=== PATIENT | female | born 1960 | race Caucasian/White ===

== ENCOUNTER 2017-02-05 18:41 | Emergency (ER) | payer SELFPAY ==
[2017-02-05 19:10] VITALS: BP 110/64; PULSE 74; TEMP 98.7; BMI 28.3
[2017-02-05] MEDS ORDERED: IBUPROFEN 400 MG TABLET (FP) PO ONE ×2 (19:22→19:28)
--- NOTE | 2017-02-05 19:28 | PDOC ---
History of Present Illness - General Chief Complaint: Ear Problem Stated Complaint: PAIN, ACUTE Time Seen by Provider: 02/05/17 19:11 History Source: Patient - History of Present Illness Timing/Duration: reports: other Severity: reports: moderate Associated Symptoms: reports: earache, sore throat. denies: cough, dizziness, facial pain, fever/chills, lightheadedness, nasal congestion, nasal drainage Past History - Past Medical History Allergies/Adverse Reactions: Allergies Allergy/AdvReac Type Severity Reaction Status Date / Time No Known Allergies Allergy Verified 02/05/17 19:10 Home Medications: Ambulatory Orders Ibuprofen [Motrin -] 600 mg PO QID #28 tablet 02/05/17 - Immunization History Immunization Up to Date: Yes - Psycho/Social/Smoking Cessation Hx Anxiety: No Suicidal Ideation: No Smoking History: Never smoked Have you smoked in the past 12 months: No Information on smoking cessation initiated: No Hx Alcohol Use: No Drug/Substance Use Hx: No Substance Use Type: None Review of Systems - Review of Systems Constitutional: No: Chills, Fever HEENTM: Yes: Ear Pain, Throat Pain Respiratory: No: Cough Neurological: No: Headache, Dizziness *Physical Exam - Vital Signs Last Vital Signs Temp Pulse Resp BP Pulse Ox 98.7 F 74 18 110/64 98 02/05/17 19:01 02/05/17 19:01 02/05/17 19:01 02/05/17 19:01 02/05/17 19:01 - Physical Exam General Appearance: Yes: Appropriately Dressed. No: Apparent Distress HEENT: positive: Normal ENT Inspection, Normal Voice. negative: Scleral Icterus (L), Pharyngeal Erythema Neck: positive: Supple. negative: Lymphadenopathy (R), Lymphadenopathy (L) Respiratory/Chest: negative: Respiratory Distress Integumentary: positive: Dry, Warm Neurologic: positive: Fully Oriented, Alert, Normal Mood/Affect Medical Decision Making - Medical Decision Making 02/05/17 19:23 57 yo F, no sig hx, here w/ L ear pain x 10 days. Also c/o sore throat. No otorrhea, congestion, cough, f/c, BERRY or dizziness. No sick contacts. No recent swimming See exam M/l viral URI Stable w/ unremarkable exam -Motrin in ED -dc w/ PMD and ENT f/u for persistent ear pain w/ no findings on exam 02/05/17 19:28 *DC/Admit/Observation/Transfer Diagnosis at time of Disposition: Ear pain, left - Discharge Dispostion Disposition: HOME Condition at time of disposition: Good - Prescriptions Prescriptions: Ibuprofen [Motrin -] 600 mg PO QID #28 tablet - Referrals Referrals: Kerri Ellington MD [Primary Care Provider] - Curtis Zayas MD [Staff Physician] - - Patient Instructions Printed Discharge Instructions: DI for Ear Pain-Adult Additional Instructions: La causa de ko dolor de odo no est audrey ya que ko examen fue normal. Por favor, tome motrin para el dolor shakila sea necesario y el seguimiento con el Dr Zayas de ENT y ko PMD Print Language: SYRIAN
== END 2017-02-05 19:39 | disposition home or self-care (01) ==
LOC: JERFT 18:41
DX: H92.02 Otalgia, left ear (principal)
CPT/HCPCS: 99281-25

== ENCOUNTER 2019-03-08 19:23 | Emergency (ER) | payer SELFPAY ==
--- NOTE | 2019-03-08 19:44 | PDOC ---
Rapid Medical Evaluation Medical Evaluation: Allergies Allergy/AdvReac Type Severity Reaction Status Date / Time No Known Allergies Allergy Verified 02/05/17 19:10 I have performed a brief in-person evaluation of this patient. The patient presents with a chief complaint of: dizziness x 3 weeks, worse yesterday; denies vomiting, headache, sob, cp, abd pain, urinary complaints Pertinent physical exam findings: In nad, abdomen soft, NT, no CVA tenderness I have ordered the following: Labs, EKG The patient will proceed to the ED for further evaluation. 03/08/19 19:41 Discharge Disposition - Referrals Referrals: Kerri Ellington MD [Primary Care Provider] - - Patient Instructions - Post Discharge Activity
[2019-03-08 19:45] VITALS: TEMP 98.1; BMI 26.2
[2019-03-08 20:22] LABS: EPI CELLS 0.4 /HPF (0-5/HPF); HYALINE CASTS 1 /lpf (0-8); URINE APPEARANCE CLEAR; URINE BACTERIA 5.2 /hpf (NEGATIVE); URINE BILIRUBIN NEGATIVE (NEGATIVE); URINE COLOR YELLOW; URINE GLUCOSE (UA) NEGATIVE (NEGATIVE); URINE KETONE NEGATIVE (NEGATIVE); URINE LEUK ESTERASE NEGATIVE (NEGATIVE); URINE NITRITE NEGATIVE (NEGATIVE); URINE PROTEIN NEGATIVE (NEGATIVE); URINE RBC 7 /hpf (0-4); URINE UROBILINOGEN 0.2 mg/dL (0.2-1.0); URINE WBC 2 /hpf (0-5)
[2019-03-08 21:56] LABS: BASO % 0.3 % (0-2.0); EOS % 2.8 % (0-4.5); HEMATOCRIT 39.2 % (32.4-45.2); LYMPH % 42.5 % (8-40); MCH 31.7 pg (25.7-33.7); MCHC 33.3 g/dl (32.0-36.0); MEAN CELL VOLUME 95.5 fl (80-96); MEAN PLT VOLUME 7.9 fl (7.5-11.1); MONO % 6.1 % (3.8-10.2); NEUT % 48.3 % (42.8-82.8); PLATELET COUNT 247 K/MM3 (134-434); RDW 13.2 % (11.6-15.6); WHITE BLOOD COUNT 7.3 K/mm3 (4.0-10.0)
[2019-03-08 22:25] LABS: ALBUMIN 4.1 g/dl (3.4-5.0); BILIRUBIN,TOTAL 0.2 mg/dL (0.2-1); CALCIUM 9.8 mg/dL (8.5-10.1); CREATININE 0.5 mg/dL (0.55-1.3); POTASSIUM 4.1 mmol/L (3.5-5.1); TOT PROT 7.7 g/dl (6.4-8.2)
--- NOTE | 2019-03-08 22:41 | PDOC ---
History of Present Illness - General Chief Complaint: Lightheaded Stated Complaint: Lightheaded Time Seen by Provider: 03/08/19 19:40 - History of Present Illness Initial Comments: Ysesy Martines is a 59yo woman with no known medical history who presents to the ED with worsening lightheadedness. She additionally reports right posterior headache for several weeks and right side pain for the past 2-3 months. She states that she has been feeling lightheaded wtih dimming vision whenever she stands up from bed for several weeks, but she felt that the symptom worsened yesterday. She has had the right posterior headache over the same period of time. She states that the headache resolves with acetaminophen but returns after several hours. She denies any associated fevers, neck stiffness, changes in vision or hearing, numbness/tingling or focal weakness. Ms Martines states that she wants to know why her head hurts. She additionally reports right mid back/flank pain for the past few months. This pain resolves when applying Vicks. She states that she called her PMD yesterday to set up an a appointment and was told to go to the ED due to the lightheadedness. She hoped the symptoms would resolve, but when they persisted today she came in. Past History - Past Medical History Allergies/Adverse Reactions: Allergies Allergy/AdvReac Type Severity Reaction Status Date / Time No Known Allergies Allergy Verified 03/08/19 19:45 Home Medications: Ambulatory Orders Ibuprofen [Motrin -] 600 mg PO QID #28 tablet 02/05/17 COPD: No Other medical history: DENIES - Immunization History Immunization Up to Date: Yes - Suicide/Smoking/Psychosocial Hx Smoking History: Never smoked Have you smoked in the past 12 months: No Information on smoking cessation initiated: No Hx Alcohol Use: No Drug/Substance Use Hx: No Substance Use Type: None Review of Systems - Review of Systems Comments:: General: + occasional fevers, no chills, no weight or appetite change, + occasional malaise HEENT: No changes in vision, no changes in hearing, no congestion, no sore throat, +headache CV: No chest pain, no palpitations, no LE edema Pulm: No SOB, no cough, no wheezing GI: No nausea or vomiting, no change in bowel habits, no melena : No frequency, no urgency, no dysuria Musc: See HPI. No joint swelling, no recent injury Skin: No rash, no lesions, no erythema Endo: No excessive thirst, no heat/cold intolerance Heme: No unusual bruising or bleeding, no swollen glands Neuro: No syncope, no numbness/tingling, no focal weakness Vasc: No claudication Psych: No recent change in mood, no SI or HI *Physical Exam - Vital Signs Last Vital Signs Temp Pulse Resp BP Pulse Ox 98.1 F 77 18 134/71 99 03/08/19 19:40 03/08/19 19:40 03/08/19 19:40 03/08/19 19:40 03/08/19 19:40 - Physical Exam Comments: General: Comfortable, no acute distress HEENT: PERRL, EOMI, MMM, voice normal, normal neck ROM. Right posterior head TTP Cards: RRR, no murmur appreciated Pulm: Comfortable on room air, clear to auscultation bilaterally Abd: Soft, nontender, nondistended Ext: Atraumatic. No LE edema. ROM intact. Vasc: Extremities WWP. Skin: Normal color, no rashes or lesions Neuro: A&Ox3, CN grossly intact, normal speech, motor/sensory grossly intact and symmetric Psych: Mood appropriate to situation ED Treatment Course - LABORATORY CBC & Chemistry Diagram: 03/08/19 21:47 03/08/19 21:47 - ADDITIONAL ORDERS Additional order review: Laboratory Results 03/08/19 03/08/19 03/08/19 21:47 21:47 19:56 Sodium 141 Potassium 4.1 Chloride 107 Carbon Dioxide 29 Anion Gap 5 L BUN 16.0 Creatinine 0.5 L Est GFR (CKD-EPI)AfAm 121.92 Est GFR (CKD-EPI)NonAf 105.20 Random Glucose 92 Calcium 9.8 Total Bilirubin 0.2 AST 34 ALT 46 Alkaline Phosphatase 143 H Troponin I < 0.02 Total Protein 7.7 Albumin 4.1 Urine Color Yellow Urine Appearance Clear Urine pH 6.0 Ur Specific Peak 1.013 Urine Protein Negative Urine Glucose (UA) Negative Urine Ketones Negative Urine Blood 1+ H Urine Nitrite Negative Urine Bilirubin Negative Urine Urobilinogen 0.2 Ur Leukocyte Esterase Negative Urine WBC (Auto) 2 Urine RBC (Auto) 7 Urine Casts (Auto) 1 U Epithel Cells (Auto) 0.4 Urine Bacteria (Auto) 5.2 03/08/19 21:47 RBC 4.10 MCV 95.5 MCHC 33.3 RDW 13.2 MPV 7.9 Neutrophils % 48.3 Lymphocytes % 42.5 H Monocytes % 6.1 Eosinophils % 2.8 Basophils % 0.3 Medical Decision Making - Medical Decision Making 03/08/19 22:41 Yessy Martines is a 59yo woman with no known medical history who presents to the ED with two weeks of occasional lightheadedness, intermittent headache that resolves with acetaminophen and 2 months of occasional right back/ side pain that resolves with Vicks rub. - Benign exam - CBC, CMP, trop, EKG, UA ordered from [facility]. Labs without concerning abnormalities - EKG w/ sinus bradycardia, HR 55, normal intervals, normal to left axis, no ST changes - Will repeat trop given vague symptoms, age, lightheadedness - CT head due to headache and lightheadedness - Side/back pain that resolves with Vicks most likely musculoskeletal. UA negative for UTI, no hematuria/infection/fever suggesting pyelo or kidney stone 03/09/19 00:28 - Repeat troponin sent - Pt taken for CT head - Repeat trop negative - CT head completed, reviewed in ED, no abnormalities apprecaited - IVF, PO acetaminophen and reglan for symptoms 03/09/19 01:30 - CT head negative for acute pathology - Given duration of symptoms, resolution w/ OTC meds, benign exam with d/c home with PMD follow up. Discussed with Dr Chino Beauchamp PGY2 *DC/Admit/Observation/Transfer Diagnosis at time of Disposition: Lightheaded - Discharge Dispostion Disposition: HOME Condition at time of disposition: Stable Decision to Admit order: No - Referrals Referrals: Kerri Ellington MD [Primary Care Provider] - - Patient Instructions Printed Discharge Instructions: DI for Dizziness-Nonvertigo Additional Instructions: Discharge Instructions: You were seen in the emergency department with pain, dizziness, and headache. Your blood tests, CT scan, and EKG were all normal. You may take acetaminophen 650-1000mg or ibuprofen 600mg every 6-8 hours as needed for discomfort. Follow up with your regular doctor within the next 2-3 days for additional evaluation. Seek immediate care for worsening symptoms, chest pain with exercise, difficulty breathing, any neurological symptoms (one-sided weakness, numbness, changes in speech) or any other medical emergency. - Post Discharge Activity
--- NOTE | 2019-03-08 23:08 | PDOC ---
Attending Attestation - Resident Resident Name: QuynhSilvana - ED Attending Attestation I have performed the following: I have examined & evaluated the patient, The case was reviewed & discussed with the resident, I agree w/resident's findings & plan, Exceptions are as noted - HPI HPI: 03/09/19 01:35 59 yo female with d/o dizziness,headache and mild chest discomfort - Physicial Exam PE: 03/08/19 23:11 59 YO female p/w 3 days of dizziness 03/08/19 23:12 wnwd petite 59 yo female p/w complaint of dizziness head ncat eyes janie eomi neck supple lungs cta b/l cvs [id number] abd nontender skin warm and dry no flank pain neuro axox3 - Medical Decision Making 03/08/19 23:08 stable vital signs, normotensive, afebrile. Chemistries and CBC are within normal limits. Urine is negative for any infection 03/09/19 01:32 ct scan head was negative for any acute intracranial pathology both tropnins were negative imp dizziness/headache plan d/c home ,tylenol for BERRY,follow up with PCP
[2019-03-09] MEDS ORDERED: IBUPROFEN 600 MG TABLET (FP) PO ONE ×2 (00:54→01:42)
[2019-03-09] MEDS ORDERED: SODIUM CHLORIDE 0.9% 500 ML INFUS.BAG IV ONE (00:54)
[2019-03-09] MEDS ORDERED: METOCLOPRAMIDE HCL 10 MG TABLET (FP) PO ONE (00:54)
[2019-03-09] MEDS ORDERED: METOCLOPRAMIDE HCL INJECTION 10 MG/2 ML VIAL ONE (01:42)
[2019-03-09 03:02] VITALS: BP 133/68; PULSE 80
--- NOTE | 2019-03-09 11:16 | EKG ---
Test Reason : Blood Pressure : / mmHG Vent. Rate : 055 BPM Atrial Rate : 055 BPM P-R Int : 162 ms QRS Dur : 082 ms QT Int : 420 ms P-R-T Axes : 016 -08 000 degrees QTc Int : 401 ms SINUS BRADYCARDIA OTHERWISE NORMAL ECG WHEN COMPARED WITH ECG OF 30-OCT-2016 20:06, NO SIGNIFICANT CHANGE WAS FOUND Confirmed by TATUM GARÍCA MD ([id number]) on 03/09/2019 11:15:42 AM Referred By: Confirmed By:TATUM GARCÍA MD
== END 2019-03-09 02:30 | disposition home or self-care (01) ==
LOC: JER 19:23
PROC: 3E0337Z Introduction of Electrolytic and Water Balance Substance into Peripheral Vein, Percutaneous Approach (ICD-10-PCS; principal; 2019-03-08)
DX: R42 Dizziness and giddiness (principal); R51 Headache
CPT/HCPCS: 36415; 70450-TC; 80053; 81003; 82550; 82553; 84484; 85025; 93005; 93010; 99283-25

== ENCOUNTER 2021-09-01 19:16 | Emergency (ER) | payer SELFPAY ==
[2021-09-01 19:26] VITALS: BP 132/78; PULSE 76; TEMP 98; BMI 28.3
[2021-09-01] MEDS ORDERED: ACETAMINOPHEN 500 MG TABLET (FP) PO ONE (19:36)
[2021-09-01] MEDS ORDERED: ACETAMINOPHEN 500 MG TABLET (FP) ONE (19:37)
== END 2021-09-01 19:40 | disposition home or self-care (01) ==
LOC: JER 19:16 → JERFT 19:16
DX: S00.03XA Contusion of scalp, initial encounter (principal); S09.90XA Unspecified injury of head, initial encounter; W22.8XXA Striking against or struck by other objects, initial encounter
CPT/HCPCS: 99283-25